=== PATIENT | female | born 1945 | race Caucasian/White ===

== ENCOUNTER → 2016-12-22 | Outpatient (CLI) | payer MEDICARE ==
--- NOTE | 2016-12-22 17:54 | MR ---
EXAMINATION TYPE: MR shoulder RT wo con DATE OF EXAM: 12/22/2016 4:29 PM COMPARISON: NONE HISTORY: Rt shoulder pain S/P fall Jul 2016 TECHNIQUE: Multiplanar, multisequence imaging of the right shoulder is performed without contrast. FINDINGS: Rotator Cuff: There is diffuse thinning and increased signal involving the majority of the anterior f ibers of the supraspinatus tendon. Findings compatible with tendinosis and partial intrasubstance tea r. There is a more focal partial through thickness tear involving the body and posterior fibers measu ring 4.5 mm near the insertion. No retraction. Infraspinatus tendon demonstrates no through thickness tear or retraction. Subscapularis tendon appears intact there is intrasubstance signal near its insertion compatible with tendinosis. Acromioclavicular Joint: Hypertrophic change of the AC joint is noted which does result in impingemen t mass effect upon the supraspinatus tendon and muscle. Glenohumeral Joint: A trace amount of fluid is seen within the axillary recess. Humeral head is somew hat high riding in position. Joint space is somewhat narrowed. No erosive changes. Labrum: The labrum appears grossly intact given limitation of non-arthrogram study. Biceps Tendon: There is increased fluid surrounding the bicipital tendon compatible with bicipital te ndinosis. Intracapsular portion of the biceps tendon demonstrates increased intrasubstance signal com patible with partial intrasubstance tear. No retraction. Biceps anchor intact. Bone marrow signal: No focal abnormal marrow signal is appreciated. IMPRESSION: 1. Impingement secondary to hypertrophic change of the AC joint with findings compatible with diffuse tendinopathy anterior fibers distal supraspinatus tendon with partial intrasubstance tear. More foca l 4.5 cm partial through thickness tear involving the body and posterior fibers of the supraspinatus tendon without retraction. 2. Tendinosis insertion subscapularis tendon as discussed above. 3. Moderate to severe bicipital tendinosis. No retraction. Intrasubstance tear within the intracapsul ar portion suspected. Biceps anchor intact.
== END | disposition home or self-care (01) ==
LOC: RADMRIMAIN 15:43
PROVIDERS: ATTEND Orthopaedic Surgery
DX: M25.511 Pain in right shoulder (principal)

== ENCOUNTER → 2017-01-05 | Outpatient (CLI) | payer MEDICARE ==
[2017-01-05 14:10] VITALS: BP 138/65; PULSE 64; TEMP 98; BMI 40.6
--- NOTE | 2017-01-05 16:06 | P.HPBAR ---
Bariatric H&P - History & Physicial H&P Date: 01/05/17 History & Physicial: Visit/CC: gastric balloon consultation Patient initial contact: Initial weight: Initial weight in pounds: Height: 5 ft 3.5 in Initial BMI: Last weight: Current weight: 105.642 kg Current weight in pounds: 232.90 Current BMI: 40.6 [place] body weight (based on NIH guidelines): 53.297 kg Excess body weight loss: The patient is a 71 year-old F who presents for Bariatric Assessment. So this is a 71-year-old female who is morbidly obese. Her BMI is 41. The patient is wishing to understand different treatment options for morbid obesity she is interested in learning about the gastric balloon. She states she has developed severe: Related to morbid obesity. She has been morbidly obese for the last 10 years. Review of Systems Constitutional: Reports as per HPI Past Medical History Past Medical History: Hypertension, Osteoarthritis (OA), Thyroid Disorder History of Any Multi-Drug Resistant Organisms: None Reported Past Surgical History: Joint Replacement, Orthopedic Surgery Additional Past Surgical History / Comment(s): Bilateral Knee replacement, Plates in her feet. Past Anesthesia/Blood Transfusion Reactions: No Reported Reaction Past Psychological History: No Psychological Hx Reported Smoking Status: Former smoker Past Alcohol Use History: Occasional Past Drug Use History: None Reported Surgical - Exam Vital Signs Temp Pulse BP 98.0 F 64 138/65 01/05/17 13:57 01/05/17 13:57 01/05/17 13:57 - General well developed, no distress - Eyes PERRL - ENT normal pinna - Neck no masses - Respiratory normal expansion - Cardiovascular Rhythm: regular - Abdomen Abdomen: soft, non tender Bariatric Assessment & Plan Plan: Morbid obesity with BMI 41. Dilantin discussion with the patient regarding intragastric balloon. I went over the risks and benefits of the procedure. I also discussed with her the procedure of sleeve gastrectomy and LAP-BAND surgery. The patient will be scheduled to see the dietitian. Bariatric Checklist Checklist: Plan: Checklist: EGD: 1. Hiatal hernia: 2. H. Pylori: HgbA1c: Vitamin D: Smoking: Former smoker Primary care physician referral: DR JEAN Psychiatry clearance: Cardiology clearance: Sleep study: Diet journal: VTE risk score: VTE risk level: Rehab needs at discharge:
== END | disposition home or self-care (01) ==
LOC: BARWHC3 13:17
PROVIDERS: ATTEND Surgery
DX: E66.01 Morbid (severe) obesity due to excess calories (principal); Z68.41 Body mass index [BMI] 40.0-44.9, adult; Z98.84 Bariatric surgery status
CPT/HCPCS: 99201; 99211

== ENCOUNTER 2017-01-26 11:38 | Day surgery (SDC) | payer OTHER ==
[2017-01-21 09:10] VITALS: BMI 40.6
[~2017-01-26 11:38] MED LIST: LACTATED RINGERS 1,000 ML IV SCH; LIDOCAINE 1% 20 ML VIAL (10MG/ML) FOR IV START INTRADERMA PRN; ONDANSETRON 4 MG/2 ML VIAL IVP PRN
[2017-01-26 12:10] VITALS: RESP 16; TEMP 97
--- NOTE | 2017-01-26 12:14 | P.GSHP ---
History of Present Illness H&P Date: 01/26/17 Chief Complaint: Morbid obesity This is a 72-year-old female referred from Dr. Martinez. Patient presents today for Obera introgastric balloon insertion. Patient has had issues with morbid obesity. Patient elected undergo intragastric balloon due to the minimal invasive nature of procedure. Patient's had extensive counseling about the risks and complications the wound. She is aware the risk of postoperative nausea vomiting abdominal pain. She is also aware of the risk of balloon perforation and that the balloon needs to be removed at the six-month interval. - Constitutional Constitutional: Reports as per HPI Past Medical History Past Medical History: Hypertension, Osteoarthritis (OA), Thyroid Disorder History of Any Multi-Drug Resistant Organisms: None Reported Past Surgical History: Joint Replacement, Orthopedic Surgery Additional Past Surgical History / Comment(s): Bilateral Knee replacement, Plates in her feet,peggy knee meniscus repairs Past Anesthesia/Blood Transfusion Reactions: No Reported Reaction Past Psychological History: No Psychological Hx Reported Smoking Status: Former smoker Past Alcohol Use History: Occasional Additional Past Alcohol Use History / Comment(s): quit smoking ,smoked approx 20yrs 1ppd Past Drug Use History: None Reported - Past Family History Mother Family Medical History: Cancer Additional Family Medical History / Comment(s): Blood CA ans skin CA Father Family Medical History: Cancer Additional Family Medical History / Comment(s): Skin Ca Medications and Allergies Home Medications Medication Instructions Recorded Confirmed Type Ca Carbonate/Vitamin D3/Vit K 1 tab PO DAILY 04/08/16 01/21/17 History [Citracal Soft Chew] Cholecalciferol [Vitamin D3] 2,000 unit PO DAILY 04/08/16 01/21/17 History Gluc/Damien-MSM#1/C/Kaushik/Papa/Bor 1 tab PO DAILY 04/08/16 01/21/17 History [Glucosamine-Chondroitin Tablet] Lisinopril-Hctz 10-12.5 mg 1 tab PO BID 04/08/16 01/21/17 History [Zestoretic 10-12.5] Multivitamins, Thera [Multivitamin 1 tab PO DAILY 04/08/16 01/21/17 History (formulary)] Vitamin B Complex 1 cap PO DAILY 04/08/16 01/21/17 History Levothyroxine Sodium [Levoxyl] 25 mcg PO 1500 04/09/16 01/21/17 History Thyroid,Pork [[place] Thyroid] 90 mg PO DAILY 04/09/16 01/21/17 History Aspirin 81 mg PO DAILY 01/21/17 01/21/17 History L.acidoph,Paracasei, B.lactis 1 each PO DAILY 01/21/17 01/21/17 History [Probiotic] Allergies Allergy/AdvReac Type Severity Reaction Status Date / Time No Known Allergies Allergy Verified 01/26/17 11:54 Surgical - Exam Vital Signs Temp Pulse Resp BP Pulse Ox 97.0 F L 77 16 139/66 96 01/26/17 12:00 01/26/17 12:00 01/26/17 12:00 01/26/17 12:00 01/26/17 12:00 - General well developed, no distress - Eyes PERRL - ENT normal pinna - Neck no masses - Respiratory normal expansion - Cardiovascular Rhythm: regular - Abdomen Abdomen: soft, non tender Assessment and Plan Plan: Morbid obesity with BMI of 41 We will perform endoscopic intragastric balloon insertion.
[2017-01-26] MEDS ORDERED: KETAMINE 10 MG/ML 20 ML VIAL ONE (12:53)
[2017-01-26] MEDS ORDERED: LIDOCAINE 1% INJ 10MG/ML (20 ML MDV) ONE ×2 (12:53→14:50)
[2017-01-26] MEDS ORDERED: ESMOLOL 100 MG/10 ML VIAL ONE (12:53)
[2017-01-26] MEDS ORDERED: GLYCOPYRROLATE 0.2 MG/ML 2 ML VIAL ONE (12:53)
[2017-01-26] MEDS ORDERED: ONDANSETRON 4 MG/2 ML VIAL ONE (12:53)
[2017-01-26] MEDS ORDERED: MIDAZOLAM 2 MG/2 ML VIAL ONE (12:53)
[2017-01-26] MEDS ORDERED: PROPOFOL 10 MG/ML 20 ML VIAL IV ONE ×2 (12:53→14:50)
[2017-01-26] MEDS ORDERED: LACTATED RINGERS 1,000 ML IV SCH (13:30)
[2017-01-26] MEDS ORDERED: ONDANSETRON 4 MG/2 ML VIAL IVP STA (13:38)
--- NOTE | 2017-01-26 13:50 | P.OP ---
Date of Procedure: 01/26/17 Preoperative Diagnosis: Morbid obesity Postoperative Diagnosis: Morbid obesity GERD Procedure(s) Performed: EGD with insertion of obera intragastric balloon Implants: Anesthesia: MAC Surgeon: Oswaldo Navarro Pathology: none sent Condition: stable Disposition: PACU Indications for Procedure: Operative Findings: Description of Procedure: The patient's placed on the endoscopy table in the lateral position. The patient received IV sedation. The gastroscope some placed oropharynx and passed into the esophagus and into the stomach and through the pylorus and into the first second portion of the duodenum. There is no evidence of any duodenitis. The scope was then brought back into the antrum and this appeared normal. Scope was unretroflexed and remainder some appeared normal there is no evidence of any significant hiatal hernia. Scope was then brought back to the level of the distal esophagus and there appeared to be some minimal esophagitis. This point the scope was withdrawn. The obera intragastric balloon was placed blindly into the oropharynx and into the esophagus and stomach. At this point the gastric scope some placed back the stomach. The obera intragastric balloon was visualized in the stomach. At this point the wire was removed from the introducer. The obera intragastric balloon was insufflated with 600 mL of normal saline. The balloon was visualized the gastroscope. At this point gentle traction was used to remove the introducer. The obera intragastric balloon was visualized the stomach. The balloon appeared to be adequately fill. There was no incision any injury to the stomach esophagus and duodenum. The scope was then withdrawn. Patient was sent to recovery in stable condition.
[2017-01-26] MEDS ORDERED: LABETALOL 5 MG/ML VIAL MDV ONE (14:50)
[2017-01-26 16:21] VITALS: BP 150/80; PULSE 82
== END 2017-01-26 16:37 | disposition home or self-care (01) ==
LOC: ORWHC2ENDO 11:38
PROVIDERS: ATTEND Surgery
DX: E66.01 Morbid (severe) obesity due to excess calories (principal); Z68.41 Body mass index [BMI] 40.0-44.9, adult; I10 Essential (primary) hypertension; M19.90 Unspecified osteoarthritis, unspecified site; E07.9 Disorder of thyroid, unspecified; Z87.891 Personal history of nicotine dependence; Z79.82 Long term (current) use of aspirin; Z79.899 Other long term (current) drug therapy
CPT/HCPCS: 43999; J2250; J2405; J2001; J2704

== ENCOUNTER → 2017-03-30 | Outpatient (CLI) | payer MEDICARE, OTHER ==
[2017-03-30 14:47] VITALS: BP 130/61; PULSE 86; TEMP 98.6; BMI 37.8
--- NOTE | 2017-03-30 17:08 | P.HPBAR ---
Bariatric H&P - History & Physicial H&P Date: 03/30/17 History & Physicial: Visit/CC: balloon follow up Patient initial contact: Initial weight: Initial weight in pounds: Height: 5 ft 3.5 in Initial BMI: Last weight: Current weight: 98.566 kg Current weight in pounds: 217.30 Current BMI: 37.8 [place] body weight (based on NIH guidelines): 53.297 kg Excess body weight loss: The patient is a 72 year-old F who presents for Bariatric Assessment. The patient presents today for balloon follow up. She's had good weight loss since her last visit. She has complaints of fatigue and GERD. Past Medical History Past Medical History: Hypertension, Osteoarthritis (OA), Thyroid Disorder History of Any Multi-Drug Resistant Organisms: None Reported Past Surgical History: Joint Replacement, Orthopedic Surgery Additional Past Surgical History / Comment(s): Bilateral Knee replacement, Plates in her feet.Obera gastric balloon placement 01-26-17 Past Anesthesia/Blood Transfusion Reactions: No Reported Reaction Past Psychological History: No Psychological Hx Reported Smoking Status: Former smoker Past Alcohol Use History: Occasional Additional Past Alcohol Use History / Comment(s): quit smoking ,smoked approx 20yrs 1ppd Past Drug Use History: None Reported - Past Family History Mother Family Medical History: Cancer Father Family Medical History: Cancer Surgical - Exam Vital Signs Temp Pulse BP 98.6 F 86 130/61 03/30/17 14:41 03/30/17 14:41 03/30/17 14:41 - General well developed, no distress - Abdomen Abdomen: soft, non tender Bariatric Assessment & Plan Plan: The patient will be placed on omeprazole 40 mg by mouth daily. She will follow- up in 2 to recheck. Patient will try natural stable such as black tea for her fatigue. She is scheduled for a parathyroid scan due to her mildly elevated calcium Appeared Bariatric Checklist Checklist: Plan: Checklist: EGD: 1. Hiatal hernia: 2. H. Pylori: HgbA1c: Vitamin D: Smoking: Former smoker Primary care physician referral: DR JEAN Psychiatry clearance: Cardiology clearance: Sleep study: Diet journal: VTE risk score: VTE risk level: Rehab needs at discharge:
== END | disposition home or self-care (01) ==
LOC: BARWHC3 14:08
PROVIDERS: ATTEND Surgery
DX: Z48.815 Encounter for surgical aftercare following surgery on the digestive system (principal); R53.83 Other fatigue; Z87.891 Personal history of nicotine dependence; E83.52 Hypercalcemia; Z79.899 Other long term (current) drug therapy
CPT/HCPCS: 97803; 99211

== ENCOUNTER → 2017-04-06 | Outpatient (CLI) | payer MEDICARE ==
[~2017-04-06] MED LIST changes: -LACTATED RINGERS 1,000 ML IV SCH; -LIDOCAINE 1% 20 ML VIAL (10MG/ML) FOR IV START INTRADERMA PRN; +LORazepam 1 MG TAB PO STA; -ONDANSETRON 4 MG/2 ML VIAL IVP PRN
--- NOTE | 2017-04-07 08:29 | NM ---
EXAMINATION TYPE: NM parathyroid w/spect DATE OF EXAM: 04/06/2017 COMPARISON: NONE HISTORY: Hypercalcemia, E 83.52 TECHNIQUE: Following administration of 27.4 mCi Tc99m Sestamibi. Anterior projection images of the neck and ches t were obtained 10 minutes and 3 hours post injection. SPECT images of the neck and chest were obtai domitila and reconstructed in three axes. FINDINGS: Thyroid tracer washout: Delayed images demonstrate near-complete tracer washout from the thyroid. Parathyroid uptake: None. The two-hour delayed images do not demonstrate any focal abnormal persisten t uptake in the region of the parathyroid glands to suggest parathyroid adenoma. Normal uptake: There is physiological tracer uptake in the myocardium, liver, salivary glands, and th yroid gland. IMPRESSION: Normal parathyroid imaging study. No evidence for mediastinal uptake to suggest mediastinal parathyro id adenoma
== END | disposition home or self-care (01) ==
LOC: RADNMMAIN 11:30
PROVIDERS: ATTEND Surgery
DX: E83.52 Hypercalcemia (principal)
CPT/HCPCS: 78071; A9500

== ENCOUNTER → 2017-04-13 | Outpatient (CLI) | payer MEDICARE, OTHER ==
[~2017-04-13] MED LIST changes: -LORazepam 1 MG TAB PO STA; +SODIUM CHLORIDE 0.9% 250 ML in EMPTY BAG 1 BAG IV PRN; +SODIUM CHLORIDE 0.9% 500 ML in EMPTY BAG 1 BAG IV PRN
[2017-04-13 11:52] VITALS: BP 155/73; PULSE 101; RESP 16; TEMP 98.1
[2017-04-13] MEDS: SODIUM CHLORIDE 0.9% 1,000 ML IV SCH ×2 (11:52→12:55)
== END ==
LOC: PROCWHC3 11:31
PROVIDERS: ATTEND Surgery
DX: E86.0 Dehydration (principal)
CPT/HCPCS: 96360; 96361

== ENCOUNTER 2017-04-24 07:25 | Day surgery (SDC) | payer OTHER ==
[2017-04-22 15:31] VITALS: BMI 36.7
[~2017-04-24 07:25] MED LIST changes: +DEXAMETHASONE SOD PHOSPHATE 10 MG/ML 1 ML VIAL IV ONE; +HYDROmorphone 1 MG/ML 1 ML SYRINGE IVP PRN; +LACTATED RINGERS 1,000 ML IV SCH; +MIDAZOLAM 2 MG/2 ML VIAL IV PRN; +ONDANSETRON 4 MG/2 ML VIAL IVP ONE; +Pre Op ABX Message 1 EACH MISC MISCELLANE ONE; +SCOPOLAMINE 1.5MG/72HR PATCH TRANSDERM ONE; -SODIUM CHLORIDE 0.9% 250 ML in EMPTY BAG 1 BAG IV PRN; -SODIUM CHLORIDE 0.9% 500 ML in EMPTY BAG 1 BAG IV PRN
[2017-04-24 08:20] VITALS: BP 149/92; PULSE 84; RESP 16; TEMP 98.3
[2017-04-24] MEDS ORDERED: LIDOCAINE 1% 20 ML VIAL (10MG/ML) FOR IV START INTRADERMA ONE (08:35)
== END 2017-04-24 09:37 | disposition home or self-care (01) ==
LOC: ORWHC2ENDO 07:25
PROVIDERS: ATTEND Surgery
DX: E66.01 Morbid (severe) obesity due to excess calories (principal)

== ENCOUNTER → 2017-06-01 | Outpatient (CLI) | payer OTHER ==
--- NOTE | 2017-06-01 14:24 | P.HPBAR ---
Bariatric H&P - History & Physicial H&P Date: 06/01/17 History & Physicial: Visit/CC: follow up Patient initial contact: Initial weight: 105.642 kg Initial weight in pounds: 232.90 Height: 5 ft 3.5 in Initial BMI: 40.6 Last weight: Current weight: 91.716 kg Current weight in pounds: 202.20 Current BMI: 35.2 [place] body weight (based on NIH guidelines): 53.297 kg Excess body weight loss: 26.6% The patient is a 72 year-old F who presents for Bariatric Assessment. The patient presents today for a gastric balloon follow-up. She is doing quite well. She's had minimal issues with dysphagia. Past Medical History Past Medical History: Hypertension, Osteoarthritis (OA), Thyroid Disorder Additional Past Medical History / Comment(s): varicose veins, nausea and vomiting last month, constipation last two weeks, recent cough History of Any Multi-Drug Resistant Organisms: None Reported Past Surgical History: Joint Replacement, Orthopedic Surgery Additional Past Surgical History / Comment(s): Bilateral Knee replacement, Plates in her feet.Obera gastric balloon placement 01-26-17 Past Anesthesia/Blood Transfusion Reactions: No Reported Reaction Smoking Status: Former smoker - Past Family History Mother Family Medical History: Cancer Father Family Medical History: Cancer Surgical - Exam Vital Signs Temp Pulse BP 97.1 F L 68 109/58 06/01/17 13:51 06/01/17 13:51 06/01/17 13:51 - General well developed, no distress - Eyes PERRL - ENT normal pinna - Neck no masses - Abdomen Abdomen: soft, non tender Bariatric Assessment & Plan Plan: The patient has lost approximately 30 pounds since her balloon insertion. She' ll follow-up in one month. Her Reglan has been helping her dysphagia. Bariatric Checklist Checklist: Plan: Checklist: EGD: 1. Hiatal hernia: 2. H. Pylori: HgbA1c: Vitamin D: Smoking: Former smoker Primary care physician referral: DR JEAN Psychiatry clearance: Cardiology clearance: Sleep study: Diet journal: VTE risk score: VTE risk level: Rehab needs at discharge:
== END | disposition home or self-care (01) ==
CPT/HCPCS: 97802; 99211

== ENCOUNTER → 2017-06-19 | Outpatient (CLI) | payer MEDICARE ==
[2017-06-19 10:25] LABS: Basophils # (A) 0.1 k/uL (0-0.2); Basophils % (A) 1 %; CH 29.4; CHCM 32.2; Eosinophils # (A) 0.3 k/uL (0-0.7); Eosinophils % (A) 4 %; HCT 39.8 % (34.0-46.0); HDW 2.35; HGB 13.6 gm/dL (11.4-16.0); Luc # (Auto) 0.16; Luc % (Auto) 2; Lymphocytes # (A) 1.1 k/uL (1.0-4.8); Lymphocytes % (A) 16 %; MCH 31.3 pg (25.0-35.0); MCHC 34.1 g/dL (31.0-37.0); MCV 91.6 fL (80.0-100.0); Mean Platelet Volume 6.7; Monocytes # (A) 0.5 k/uL (0-1.0); Monocytes % (A) 7 %; Neutrophils # (A) 4.9 k/uL (1.3-7.7); Neutrophils % (A) 70 %; RBC 4.35 m/uL (3.80-5.40); WBC (Perox) 7.46
[2017-06-19 10:54] LABS: ALT 52 U/L (9-52); AST 32 U/L (14-36); Alkaline Phosphatase 57 U/L (38-126); Anion Gap 9 mmol/L; Blood Urea Nitrogen 22 mg/dL (7-17); Calcium 9.2 mg/dL (8.4-10.2); Carbon Dioxide 28 mmol/L (22-30); Chloride 102 mmol/L (98-107); Cholesterol 184 mg/dL (<200); Glucose 98 mg/dL (74-99); HDL Cholesterol 52 mg/dL (40-60); Non-African American GFR(MDRD) >60 (>60 ml/min/1.73 sqM); Potassium 4.4 mmol/L (3.5-5.1); Sodium 139 mmol/L (137-145); Total Bilirubin 0.3 mg/dL (0.2-1.3); Total Protein 6.7 g/dL (6.3-8.2)
== END | disposition home or self-care (01) ==
LOC: LABWHC1 09:23
PROVIDERS: ATTEND Family Medicine
DX: E03.9 Hypothyroidism, unspecified (principal)
CPT/HCPCS: 36415; 80053; 80061; 84443; 85025

== ENCOUNTER 2017-08-03 06:23 | Day surgery (SDC) | payer OTHER ==
[2017-07-29 13:49] VITALS: BMI 33.6
[~2017-08-03 06:23] MED LIST changes: -DEXAMETHASONE SOD PHOSPHATE 10 MG/ML 1 ML VIAL IV ONE; -HYDROmorphone 1 MG/ML 1 ML SYRINGE IVP PRN; +LIDOCAINE 1% 20 ML VIAL (10MG/ML) FOR IV START INTRADERMA PRN; -MIDAZOLAM 2 MG/2 ML VIAL IV PRN; -SCOPOLAMINE 1.5MG/72HR PATCH TRANSDERM ONE
--- NOTE | 2017-08-03 07:52 | P.GSHP ---
History of Present Illness H&P Date: 08/03/17 Chief Complaint: Obesity This a 72-year-old female who presents today for removal of intragastric balloon. Patient had the intragastric balloon placed proximal to 6 months ago. She is lost approximately 35 pounds. Patient will have the balloon removed today. Patient aware the risk of aspiration. She has been nothing by mouth since last night. Past Medical History Past Medical History: Hypertension, Osteoarthritis (OA), Thyroid Disorder Additional Past Medical History / Comment(s): varicose veins, nausea and vomiting last month, constipation last two weeks, recent cough History of Any Multi-Drug Resistant Organisms: None Reported Past Surgical History: Joint Replacement, Orthopedic Surgery Additional Past Surgical History / Comment(s): Bilateral Knee replacement, Plates in her feet.Obera gastric balloon placement 01-26-17 Past Anesthesia/Blood Transfusion Reactions: No Reported Reaction Past Psychological History: No Psychological Hx Reported Additional Psychological History / Comment(s): clautrophobia Smoking Status: Former smoker Past Alcohol Use History: Occasional Additional Past Alcohol Use History / Comment(s): quit smoking ,smoked approx 20yrs 1ppd Past Drug Use History: None Reported - Past Family History Mother Family Medical History: Cancer Father Family Medical History: Cancer Medications and Allergies Home Medications Medication Instructions Recorded Confirmed Type Calcium Carb/Vitamin D3/Vit K1 1 tab PO DAILY 04/08/16 07/29/17 History [Citracal Soft Chew] Lisinopril-Hctz 10-12.5 mg 1 tab PO BID 04/08/16 08/03/17 History [Zestoretic 10-12.5] Levothyroxine Sodium [Levoxyl] 25 mcg PO 1500 04/09/16 07/29/17 History Thyroid,Pork [[place] Thyroid] 90 mg PO 1500 04/09/16 07/29/17 History Aspirin 81 mg PO DAILY 01/21/17 07/29/17 History L.acidoph,Paracasei, B.lactis 1 each PO DAILY 01/21/17 07/29/17 History [Probiotic] Omeprazole 40 mg PO DAILY #60 capsule. 01/26/17 07/29/17 Rx Metoclopramide HCl [Reglan] 10 mg PO QID #50 tablet 04/20/17 07/29/17 Rx Ondansetron [Zofran] 4 mg PO Q8HR PRN 08/03/17 08/03/17 History Allergies Allergy/AdvReac Type Severity Reaction Status Date / Time No Known Allergies Allergy Verified 08/03/17 06:57 Surgical - Exam Vital Signs Temp Pulse Resp BP Pulse Ox 97.7 F 75 18 140/75 94 L 08/03/17 06:35 08/03/17 06:35 08/03/17 06:35 08/03/17 06:35 08/03/17 06:35 - General well developed, no distress - Eyes PERRL - ENT normal pinna - Neck no masses - Respiratory normal expansion - Cardiovascular Rhythm: regular - Abdomen Abdomen: soft, non tender Assessment and Plan Assessment: Obesity, BMI 34. We'll perform removal of intragastric balloon.
[2017-08-03] MEDS ORDERED: LIDOCAINE 1% INJ 10MG/ML (20 ML MDV) ONE (07:55)
[2017-08-03] MEDS ORDERED: SUCCINYLCHOLINE CHLORIDE 100 MG/5 ML SYR IV ONE (07:55)
[2017-08-03] MEDS ORDERED: MIDAZOLAM 2 MG/2 ML VIAL ONE (07:55)
[2017-08-03] MEDS ORDERED: fentaNYL (PF) 50 MCG/ML 2 ML AMP ONE (07:55)
[2017-08-03] MEDS ORDERED: ePHEDrine SULFATE/0.9% NACL/PF 50 MG/5 ML SYRINGE IV ONE (07:55)
[2017-08-03] MEDS ORDERED: PROPOFOL 10 MG/ML 20 ML VIAL IV ONE (07:55)
[2017-08-03] MEDS ORDERED: LACTATED RINGERS 1,000 ML IV ONE (08:47)
--- NOTE | 2017-08-03 09:10 | P.OP ---
Date of Procedure: 08/03/17 Preoperative Diagnosis: Morbid obesity Postoperative Diagnosis: Morbid obesity Procedure(s) Performed: Endoscopic removal of intragastric balloon Anesthesia: NELLIE Surgeon: Oswaldo Navarro Pathology: other (Intragastric balloon) Condition: stable Disposition: PACU Description of Procedure: The patient's placed on the endoscopy table lateral position. She received IV sedation. The gastroscope placed oropharynx passed in the esophagus and stomach. There was a small amount retained food and liquid and stomach. This was aspirated. The gastric balloon was visualized. The balloon was then cannulated the needle and then the sheath was placed into the balloon. The balloon was then aspirated after needle was removed and 550 mL removed from the balloon. At this point the sheath was removed and then the lumen was grasped with a grasper the balloon was then brought up into the oropharynx. The grasper tore through the balloon. The balloon was then placed back into the stomach and then a new graspers placed in the balloon. And then the balloon was brought up through the area of the oropharynx and then this point the neck was flexed and the balloon was retrieved. The scope was then brought back down into the stomach. The stomach appeared normal. The esophagus appeared normal. The oropharynx. Normal. Scope was withdrawn for patient. The patient was then sent to recovery room stable condition.
[2017-08-03 09:11] VITALS: TEMP 97.4
[2017-08-03 09:20] VITALS: RESP 16
[2017-08-03 10:08] VITALS: BP 142/83; PULSE 93
== END 2017-08-03 10:37 | disposition home or self-care (01) ==
LOC: ORWHC2ENDO 06:23
PROVIDERS: ATTEND Surgery
DX: Z46.89 Encounter for fitting and adjustment of other specified devices (principal); E66.01 Morbid (severe) obesity due to excess calories; Z68.34 Body mass index [BMI] 34.0-34.9, adult; R13.10 Dysphagia, unspecified; I10 Essential (primary) hypertension; E07.9 Disorder of thyroid, unspecified; Z87.891 Personal history of nicotine dependence; M19.90 Unspecified osteoarthritis, unspecified site; Z79.899 Other long term (current) drug therapy; Z79.82 Long term (current) use of aspirin
CPT/HCPCS: 43999; J2250; J2001; J3010; J0330; J2704

== ENCOUNTER → 2017-09-30 | Outpatient (CLI) | payer MEDICARE ==
--- NOTE | 2017-10-01 19:12 | US ---
EXAMINATION TYPE: US thyroid st tissue head/neck DATE OF EXAM: 09/30/2017 COMPARISON: NONE CLINICAL HISTORY: HYPOTHYROID E03.9,GOITER E04.9. no symptoms GLAND SIZE: Right Lobe: 2.5 x 0.8 x 0.7 cm Overall Parenchyma: homogenous Left Lobe: 2.6 x 0.8 x 1.0 cm Overall Parenchyma: homogeneous Isthmus Thickness: 0.1 cm NODULES RIGHT: # of nodules measured on right: 0 LEFT: # of nodules measured on left: 0 ISTHMUS: # of nodules measured in the isthmus: 0 Bilateral neck scanned, no evidence of lymphadenopathy. IMPRESSION: 1. Normal thyroid scan
== END | disposition home or self-care (01) ==
LOC: RADUSWWP 15:35
PROVIDERS: ATTEND Family Medicine
DX: E04.9 Nontoxic goiter, unspecified (principal); E03.9 Hypothyroidism, unspecified
CPT/HCPCS: 76536

== ENCOUNTER → 2017-12-18 | Outpatient (CLI) | payer MEDICARE ==
--- NOTE | 2017-12-22 09:08 | MM ---
Reason for exam: screening (asymptomatic). Last mammogram was performed 1 year and 1 month ago. History: Patient is postmenopausal. Family history of breast cancer in 3 aunts and premenopausal breast cancer in mother at age 42. Benign stereotactic core biopsy of the right breast, December 30, 2002. Core biopsy of the right breast. Physical Findings: A clinical breast exam by your physician is recommended on an annual basis and results should be correlated with mammographic findings. MG 3D Screening Mammo W/Cad Bilateral CC and MLO view(s) were taken. Prior study comparison: November 18, 2016, mammogram, performed at [facility]. October 15, 2007, bilateral screening mammogram w/CAD. October 02, 2006, bilateral screening mammogram w/CAD. The breast tissue is heterogeneously dense. This may lower the sensitivity of mammography. Previous mammotome biopsy in the right breast. Scattered asymmetries are unchanged. No significant changes when compared with prior studies. ASSESSMENT: Benign, BI-RAD 2 RECOMMENDATION: Routine screening mammogram of both breasts in 1 year.
== END | disposition home or self-care (01) ==
LOC: RADMAMWWP 13:17
PROVIDERS: ATTEND Family Medicine
DX: Z12.31 Encounter for screening mammogram for malignant neoplasm of breast (principal)
CPT/HCPCS: 77063; 77067

== ENCOUNTER → 2018-02-23 | Outpatient (CLI) | payer MEDICARE ==
[2018-02-23 13:12] LABS: C Reactive Protein 13.2 mg/L (<10.0)
== END | disposition home or self-care (01) ==
LOC: LABWHC1 12:14
PROVIDERS: ATTEND Family Medicine
DX: E27.40 Unspecified adrenocortical insufficiency (principal)
CPT/HCPCS: 36415; 82533; 86140

== ENCOUNTER → 2019-02-08 | Outpatient (CLI) | payer MEDICARE ==
--- NOTE | 2019-02-09 11:44 | MM ---
Reason for exam: screening (asymptomatic). Last mammogram was performed 1 year and 2 months ago. History: Patient is postmenopausal. Family history of breast cancer in 3 aunts and premenopausal breast cancer in mother at age 42. Benign stereotactic core biopsy of the right breast, December 30, 2002. Core biopsy of the right breast. Physical Findings: A clinical breast exam by your physician is recommended on an annual basis and results should be correlated with mammographic findings. MG 3D Screening Mammo W/Cad Bilateral CC and MLO view(s) were taken. Prior study comparison: December 18, 2017, bilateral MG 3d screening mammo w/cad. November 18, 2016, mammogram, performed at [facility]. The breast tissue is heterogeneously dense. This may lower the sensitivity of mammography. No suspicious abnormality on the left. Medial distortion on the right at middle depth 9.4cm from nipple. ASSESSMENT: Incomplete: need additional imaging evaluation, BI-RAD 0 RECOMMENDATION: Special view mammogram of the right breast. If lesion persists on supplemental views, image directed ultrasound is recommended. [facility] will attempt to contact patient to return for supplemental views and ultrasound if indicated.
== END | disposition home or self-care (01) ==
LOC: RADMAMWWP 16:38
PROVIDERS: ATTEND Family Medicine
DX: Z12.31 Encounter for screening mammogram for malignant neoplasm of breast (principal)
CPT/HCPCS: 77063; 77067

== ENCOUNTER → 2019-02-11 | Outpatient (CLI) | payer MEDICARE ==
--- NOTE | 2019-02-11 11:59 | MM ---
Reason for exam: additional evaluation requested from abnormal screening. Last mammogram was performed less than 1 month ago. History: Patient is postmenopausal. Family history of breast cancer in 3 aunts and premenopausal breast cancer in mother at age 42. Benign stereotactic core biopsy of the right breast, December 30, 2002. Core biopsy of the right breast. Physical Findings: Nurse did not find any significant physical abnormalities on exam. MG 3D Work Up W/Cad RT Spot compression CC and LM view(s) were taken of the right breast. Prior study comparison: February 08, 2019, bilateral MG 3d screening mammo w/cad. December 18, 2017, bilateral MG 3d screening mammo w/cad. The breast tissue is heterogeneously dense. This may lower the sensitivity of mammography. Benign appearing calcifictions in the right breast. The previously seen abnormality resolves on additional views and appears as fibroglandular tissue compatible with summation. No suspicious abnormality. These results were verbally communicated with the patient and result sheet given to the patient on 02/11/19. ASSESSMENT: Benign, BI-RAD 2 RECOMMENDATION: Return to routine screening mammogram schedule for both breasts.
== END ==
LOC: RADMAMWWP 07:32
PROVIDERS: ATTEND Family Medicine
DX: R92.8 Other abnormal and inconclusive findings on diagnostic imaging of breast (principal)
CPT/HCPCS: 77065; G0279; 77061

== ENCOUNTER → 2019-03-14 | Outpatient (CLI) | payer MEDICARE ==
--- NOTE | 2019-03-14 23:37 | BD ---
EXAMINATION TYPE: Axial Bone Density DATE OF EXAM: 03/14/2019 COMPARISON: 2004 CLINICAL HISTORY: 74-year-old female postmenopausal screening Height: 5'3 Weight: 225 FRAX RISK QUESTIONS: History of Fracture in Adulthood: y Secondary Osteoporosis: RISK FACTORS HISTORY OF: Family History of Osteoporosis: y Postmenopausal woman: y MEDICATIONS: Thyroid Medications: Which medication: armor How Lon years Additional Medications: blood pressure Additional History: EXAM MEASUREMENTS: Bone mineral densitometry was performed using the [employer] System. Bone mineral density as measured about the Lumbar spine is: ----- L1-L4(G/cm2): 1.578 T Score Values are as follows: ----- L2: 2.2 ----- L3: 4.8 ----- L4: 3.8 ----- L1-L4: 3.3 Bone mineral density has: Increased 11.1% since study of: 09/20/2004 Bone mineral density about the R hip (g/cm2): 0.806 Bone mineral density about the L hip (g/cm2): 0.815 T Score values are as follows: -----R Neck: -1.7 -----L Neck: -1.6 -----R Total: -0.6 -----L Total: -0.4 Bone mineral density has: Decreased -10.2% since study of: 09/20/2004 IMPRESSION: Osteopenia (T Score between -2.5 and -1). There is slightly increased risk of fracture and the patient may be considered for treatment. Re-Screen 2-5 years. NOTE: T-SCORE=SD OF THE YOUNG ADULT MEAN.
== END | disposition home or self-care (01) ==
LOC: RADBDWWP 09:23
PROVIDERS: ATTEND Family Medicine
DX: Z78.0 Asymptomatic menopausal state (principal); M85.80 Other specified disorders of bone density and structure, unspecified site
CPT/HCPCS: 77080

== ENCOUNTER → 2021-04-16 | Outpatient (CLI) | payer MEDICARE ==
--- NOTE | 2021-04-16 15:31 | BD ---
EXAMINATION TYPE: Axial Bone Density DATE OF EXAM: 04/16/2021 COMPARISON: NONE CLINICAL HISTORY: Postmenopausal female Height: 64 Weight: 219.2 FRAX RISK QUESTIONS: Alcohol (3 or more units per day): no Family History (Parent hip fracture): no Glucocorticoids (More than 3mos): no (Ex: prednisone, prednisolone, methylprednisolone, dexamethasone, and hydrocortisone). History of Fracture in Adulthood: no Secondary Osteoporosis: 1. Type 1 Diabetes: no 2. Hyperthyroidism: no 3. Menopause before 45: no 4. Malnutrition: no 5. Chronic liver disease: no Rheumatoid Arthritis: no Current Tobacco Use: no RISK FACTORS HISTORY OF: Surgery to Spine/Hip(right/left)/Wrist (right/left): no Family History of Osteoporosis: yes Active: yes Diet low in dairy products/other sources of calcium: yes Postmenopausal woman: age 61 Lost more than 2 inches in height since high school: no MEDICATIONS: blood pressure meds Thyroid Medications: armourthroid How Lon years Additional History: EXAM MEASUREMENTS: Bone mineral densitometry was performed using the [employer] System. Bone mineral density as measured about the Lumbar spine is: ----- L1-L4(G/cm2): 1.616 T Score Values are as follows: ----- L2: 2.2 ----- L3: 5.0 ----- L4: 4.5 ----- L1-L4: 3.6 Bone mineral density has: increased 2.8 % since study of: 03.14.2019 Bone mineral density about the R hip (g/cm2): 0.835 Bone mineral density about the L hip (g/cm2): 0.846 T Score values are as follows: -----R Neck: -1.5 -----L Neck: -1.4 -----R Total: -0.6 -----L Total: -0.5 Bone mineral density has: increased 0.1 % since study of: 03.14.2019 IMPRESSION: Osteopenia (T Score between -2.5 and -1). There is slightly increased risk of fracture and the patient may be considered for treatment. Re-Screen 2-5 years. NOTE: T-SCORE=SD OF THE YOUNG ADULT MEAN.
--- NOTE | 2021-04-18 11:26 | MM ---
Reason for exam: screening (asymptomatic). Last mammogram was performed 1 year and 1 month ago. History: Patient is postmenopausal. Family history of breast cancer in 3 aunts and premenopausal breast cancer in mother at age 42. Benign stereotactic core biopsy of the right breast, December 30, 2002. Core biopsy of the right breast. Physical Findings: A clinical breast exam by your physician is recommended on an annual basis and results should be correlated with mammographic findings. MG 3D Screening Mammo W/Cad Bilateral CC and MLO view(s) were taken. Prior study comparison: March 29, 2020, bilateral MG 3d screening mammo w/cad. February 08, 2019, bilateral MG 3d screening mammo w/cad. December 18, 2017, bilateral MG 3d screening mammo w/cad. The breast tissue is heterogeneously dense. This may lower the sensitivity of mammography. No significant changes when compared with prior studies. ASSESSMENT: Benign, BI-RAD 2 RECOMMENDATION: Routine screening mammogram of both breasts in 1 year.
== END | disposition home or self-care (01) ==
LOC: RADBDWWP 14:24
PROVIDERS: ATTEND Family Medicine
DX: Z12.31 Encounter for screening mammogram for malignant neoplasm of breast (principal); M85.89 Other specified disorders of bone density and structure, multiple sites; Z78.0 Asymptomatic menopausal state; Z80.3 Family history of malignant neoplasm of breast
CPT/HCPCS: 77063; 77067; 77080

== ENCOUNTER → 2022-04-17 | Outpatient (CLI) | payer MEDICARE ==
--- NOTE | 2022-04-18 15:50 | MM ---
Reason for Exam: Screening (asymptomatic). Last screening mammogram was performed 12 month(s) ago. Patient History: Menarche at age 11. First Full-Term at age 24. Postmenopausal. Core Biopsy on the Right side. 12/30/2002, Benign Stereotactic Core Biopsy on the right side. Maternal aunt had breast cancer. Maternal aunt had breast cancer. Maternal aunt had breast cancer. Mother had breast cancer, age 42. Risk Values: Myra 5 year model risk: 5.5%. NCI Lifetime model risk: 10.9%. Prior Study Comparison: 02/11/2019 Right Diagnostic Mammogram, [facility]. 03/29/2020 Bilateral Screening Mammogram, [facility]. 04/16/2021 Bilateral Screening Mammogram, [facility]. Tissue Density: The breast tissue is heterogeneously dense. This may lower the sensitivity of mammography. Findings: Analyzed By CAD. There is no suspicious group of microcalcifications or new suspicious mass in either breast. Overall Assessment: Benign, BI-RAD 2 Management: Screening Mammogram of both breasts in 1 year. A clinical breast exam by your physician is recommended on an annual basis and results should be correlated with mammographic findings. Electronically signed and approved by: Theodore Garcia M.D. Radiologis
== END | disposition home or self-care (01) ==
LOC: RADMAMWWP 09:44
PROVIDERS: ATTEND Family Medicine
DX: Z12.31 Encounter for screening mammogram for malignant neoplasm of breast (principal); Z78.0 Asymptomatic menopausal state; Z80.3 Family history of malignant neoplasm of breast
CPT/HCPCS: 77063; 77067

== ENCOUNTER → 2022-08-18 | Outpatient (CLI) | payer MEDICARE ==
[2022-08-18 15:03] LABS: Basophils # (A) 0.05 X 10*3/uL (0.00-0.10); Basophils % (A) 0.8 %; Eosinophils # (A) 0.34 X 10*3/uL (0.04-0.35); Eosinophils % (A) 5.4 %; HCT 45.6 % (37.2-46.3); HGB 14.7 g/dL (12.0-15.0); Immature Grans, Automated 0.2 %; Lymphocytes # (A) 1.46 X 10*3/uL (0.90-5.00); Lymphocytes % (A) 23.1 %; MCH 30.3 pg (27.0-32.0); MCHC 32.2 g/dL (32.0-37.0); Monocytes # (A) 0.56 X 10*3/uL (0.20-1.00); Monocytes % (A) 8.9 %; NRBC Per 100 WBC 0 /100 WBCS (0.0-0.0); Neutrophils # (A) 3.89 X 10*3/uL (1.80-7.70); Neutrophils % (A) 61.6 %; Platelet Count 290 X 10*3/uL (140-440); RBC 4.85 X 10*6/uL (4.10-5.20); RDW 13.8 % (11.5-14.5); WBC 6.31 X 10*3/uL (4.50-10.00)
[2022-08-18 15:40] LABS: ALT 15 U/L (8-44); AST 17 U/L (13-35); African American GFR (CKD) 79.9 (60.0-200.0); Albumin 4.5 g/dL (3.8-4.9); Albumin/Globulin Ratio 1.87 (1.60-3.17); Alkaline Phosphatase 66 U/L (41-126); Blood Urea Nitrogen 22.8 mg/dL (9.0-27.0); Calcium 9.6 mg/dL (8.7-10.3); Carbon Dioxide 27.9 mmol/L (20.0-27.5); Chloride 101 mmol/L (96-109); Globulin 2.4 g/dL (1.6-3.3); Glucose 99 mg/dL (70-110); LDL Cholesterol,Calculated 144.2 mg/dL (0.0-131.0); Non-African American GFR(CKD) 68.9 (60.0-200.0); Potassium 4.6 mmol/L (3.5-5.5); Sodium 140 mmol/L (135-145); Total Protein 6.8 g/dL (6.2-8.2)
== END | disposition home or self-care (01) ==
LOC: LABWHC1 09:10
PROVIDERS: ATTEND Family Medicine
DX: I10 Essential (primary) hypertension (principal); I25.10 Atherosclerotic heart disease of native coronary artery without angina pectoris; E03.9 Hypothyroidism, unspecified
CPT/HCPCS: 36415; 80053; 80061; 84439; 84443; 85025

== ENCOUNTER → 2024-06-08 | Outpatient (CLI) | payer MEDICARE ==
[2024-06-08 16:49] LABS: Basophils # (A) 0.07 X 10*3/uL (0.00-0.10); Eosinophils # (A) 0.31 X 10*3/uL (0.04-0.35); Eosinophils % (A) 4.5 %; HCT 42.7 % (37.2-46.3); Lymphocytes # (A) 1.69 X 10*3/uL (0.90-5.00); Lymphocytes % (A) 24.5 %; MCH 30.8 pg (27.0-32.0); MCHC 32.8 g/dL (32.0-37.0); MCV 93.8 FL (80.0-97.0); Mean Platelet Volume 9.5 FL (9.5-12.2); Monocytes # (A) 0.65 X 10*3/uL (0.20-1.00); Monocytes % (A) 9.4 %; NRBC Per 100 WBC 0 X 10*3/uL (0.00-0.01); Neutrophils # (A) 4.17 X 10*3/uL (1.80-7.70); Neutrophils % (A) 60.3 %; Platelet Count 297 X 10*3/uL (140-440); RBC 4.55 X 10*6/uL (4.10-5.20); RDW 14.2 % (11.5-14.5); WBC 6.91 X 10*3/uL (4.50-10.00)
[2024-06-08 17:02] LABS: ALT 16 U/L (8-44); AST 23 U/L (13-35); Albumin 4.2 g/dL (3.8-4.9); Albumin/Globulin Ratio 1.62 Ratio (1.60-3.17); Alkaline Phosphatase 67 U/L (41-126); BUN/Creat Ratio 29.62 Ratio (12.00-20.00); Blood Urea Nitrogen 23.7 mg/dL (9.0-27.0); Calcium 9.1 mg/dL (8.7-10.3); Carbon Dioxide 26.9 mmol/L (21.6-31.8); Chloride 103 mmol/L (96-109); Chol/HDL Ratio 3.29 Ratio; Globulin 2.6 g/dL (1.6-3.3); Glucose 90 mg/dL (70-110); LDL Cholesterol,Calculated 130.5 mg/dL (0.0-131.0); Potassium 4.3 mmol/L (3.5-5.5); Sodium 140 mmol/L (135-145); Total Bilirubin 0.4 mg/dL (0.3-1.2); Total Protein 6.8 g/dL (6.2-8.2); VLDL Calculation 18.54 mg/dL (5.00-40.00)
[2024-06-08 17:03] LABS: T4, Free (Free Thyroxine) 0.85 ng/dL (0.80-1.80)
== END | disposition home or self-care (01) ==
LOC: LABWHC1 11:34
PROVIDERS: ATTEND Family Medicine
DX: E03.9 Hypothyroidism, unspecified
CPT/HCPCS: 36415; 80053; 80061; 84439; 84443; 85025; 86140